=== PATIENT | female | born 1960 | race Caucasian/White ===

== ENCOUNTER 2023-03-28 13:50 | Emergency (ER) | payer BC ==
[~2023-03-28] VITALS: Ht 162.6 cm; Wt 63.5 kg
[2023-03-28 14:14] VITALS: BP_SYST 148
--- NOTE | 2023-03-28 16:10 | NUR ---
Patient to [facility] for evaluation. Side rails up.
--- NOTE | 2023-03-28 16:12 | NUR ---
PATIENT BROUGHTIN COMPLAINING OF LACERATION TO THE RIGHT 2ND FINGER AFTER CUTTING HERSELF WHILE USING A MANDOLIN SLICER. TETANUS VACCINE NOTE UP TO DATE.
--- NOTE | 2023-03-28 16:22 | NUR ---
ER at bedside examining patient.
[2023-03-28] MEDS ORDERED: DIPHTH,PERTUSS(ACELL),TET VAC 0.5 ML VIAL (Tdap) I.M. ONE (16:30)
[2023-03-28 17:08] VITALS: BP_SYST 132
--- NOTE | 2023-03-28 17:08 | NUR ---
Patient given written and verbal discharge instructions and verbalizes understanding. ER MD discussed with patient the results and treatment provided. Patient in stable condition. ID arm band removed. Patient educated on pain management and to follow up with PMD. Pain Scale 0/10 Opportunity for questions provided and answered.
== END 2023-03-28 17:08 | disposition home or self-care (01) ==
LOC: SED 13:50
DX: S61.210A Laceration without foreign body of right index finger without damage to nail, initial encounter (principal); Z88.5 Allergy status to narcotic agent; Z79.899 Other long term (current) drug therapy; W27.4XXA Contact with kitchen utensil, initial encounter; Y93.89 Activity, other specified; Y92.89 Other specified places as the place of occurrence of the external cause; Y99.8 Other external cause status
CPT/HCPCS: 90715; 99283